=== PATIENT | male | born 1960 | race Caucasian/White ===

== ENCOUNTER 2018-04-15 10:21 | Day surgery (SDC) | payer OTHER ==
[~2018-04-15 10:21] MED LIST: Buffered Lidocaine 0.9% SYRIN* 5 ML/SYR SYRINGE INTRADERM ONE
[2018-04-15] MEDS ORDERED: ceFAZolin 2 GM in NS PREMIX(*) 2 GM/100 ML BAG IVPB ONE (10:53)
[2018-04-15] MEDS ORDERED: Bupivacaine 0.25% SDV PF* 10 ML VIAL INJ ONE ×2 (12:54→13:26)
[2018-04-15] MEDS ORDERED: fentaNYL* 50 MCG/ML 2 ML VIAL (100 MCG VIAL) ONE (13:04)
[2018-04-15] MEDS ORDERED: Midazolam* 1 MG/ML 2 ML VIAL (2 MG) ONE ×3 (13:05→13:25)
[2018-04-15 14:26] VITALS: BP 143/91
== END 2018-04-15 14:46 | disposition home or self-care (01) ==
LOC: OR 10:21
PROVIDERS: ATTEND Plastic Surgery
DX: L72.0 Epidermal cyst (principal); I10 Essential (primary) hypertension
CPT/HCPCS: 88304; J0690; J2250; J3010; J3490

== ENCOUNTER 2018-05-04 07:15 | Emergency (ER) | payer OTHER ==
--- NOTE | 2018-05-04 07:52 | UC ---
General HPI - HPI Summary HPI Summary: c/o flu like sx and muscle/joint aches right arm states his removed 2 tics from back and since then has not felt well. 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 Denies fever, chills, rash, numbness - History of Current Complaint Chief Complaint: UCGeneralIllness Stated Complaint: SWOLLEN ARM Time Seen by Provider: 05/04/18 07:35 Hx Obtained From: Patient Onset/Duration: Gradual Onset, Lasting Weeks Onset Severity: Mild Current Severity: Mild Pain Intensity: 2 - Allergy/Home Medications Allergies/Adverse Reactions: Allergies Allergy/AdvReac Type Severity Reaction Status Date / Time No Known Allergies Allergy Verified 04/15/18 10:49 PMH/Surg Hx/FS Hx/Imm Hx Cardiovascular History: Hypertension - Surgical History Surgical History: Yes Surgery Procedure, Year, and Place: APPENDECTOMY. NASAL FX, FACIAL SURGERY X 2 [place] [facility] [place] LEFT FOOT 2016 [place] fibroid cyst removed left middle finger 03/2018 - Family History Known Family History: Positive: Cardiac Disease, Hypertension - Social History Alcohol Use: None Alcohol Amount: 1-2 BEERS/MONTH Substance Use Type: None Smoking Status (MU): Never Smoked Tobacco Have You Smoked in the Last Year: No Review of Systems Musculoskeletal: Arthralgia, Myalgia All Other Systems Reviewed And Are Negative: Yes Physical Exam - Summary Physical Exam Summary: tender on medial epycondyle right elbow, no bruising , no mass, no rashes. Distal pulses present, capillary refill brisk, sensory intact Triage Information Reviewed: Yes Appearance: Well-Appearing, No Pain Distress, Obese Vital Signs: Initial Vital Signs Temp 97.6 F 05/04/18 07:24 Pulse 58 05/04/18 07:24 Resp 16 05/04/18 07:24 BP 170/100 05/04/18 07:24 Pulse Ox 98 05/04/18 07:24 Vital Signs Reviewed: Yes Eyes: Positive: Conjunctiva Clear ENT: Positive: Hearing grossly normal, Pharynx normal Neck: Positive: Supple, Nontender, No Lymphadenopathy Respiratory: Positive: Chest non-tender, Lungs clear, Normal breath sounds, No respiratory distress Cardiovascular: Positive: RRR, No Murmur, Pulses Normal Abdomen Description: Positive: Nontender Musculoskeletal: Positive: Strength Intact, ROM Intact, No Edema Course/Dx - Course Course Of Treatment: Physical exam compatible with tennis elbow, instructed patient with stretching exercises, RICE, referral to PT. Hx of HTN, missed 2 doses of metoprolol, advised to monitor and f/u wth PCP - Differential Dx - Multi-Symptom Provider Diagnoses: medial epicondylitis. HTN Discharge - Sign-Out/Discharge Documenting (check all that apply): Patient Departure All imaging exams completed and their final reports reviewed: No Studies - Discharge Plan Condition: Stable Disposition: HOME Referrals: Avniash Hernandez [Primary Care Provider] - - Billing Disposition and Condition Condition: STABLE Disposition: Home
[2018-05-04 08:02] VITALS: BP 154/100
== END 2018-05-04 08:07 | disposition home or self-care (01) ==
LOC: UCEAST 07:15
DX: M77.01 Medial epicondylitis, right elbow (principal); I10 Essential (primary) hypertension
CPT/HCPCS: 99211; G0463